=== PATIENT | female | born 1950 | race Caucasian/White ===

== ENCOUNTER → 2018-11-03 08:38 | Outpatient (CLI) | payer MEDICARE, MEDICAID, SELFPAY ==
--- NOTE | 2018-11-03 08:42 | XR_ITS ---
XR DEXA axial skeleton HISTORY: ITS.REASON: OSTEOPENIA ORDERING PHYSICIAN: Antonette Montalvo PATIENT AGE: 68 years COMPARISON: 08/09/2016 FINDINGS: The BMD measured at the Left femoral neck is 0.857 g/cm squared with a T score of -1.3. This is considered Osteopenic according to the World Health Organization criteria. Fracture risk is Moderate. Treatment is advised. L1 L4 density has a T score of -0.7 and has decreased by 1.4%. The hip density has decreased by 1% IMPRESSION: Osteopenia with moderate fracture risk. Treatment is advised. Suggest follow-up exam October 2020
== END ==
PROVIDERS: PCP Nurse Practitioner Family; Visit Provider Nurse Practitioner Family
DX: Z13.820 Encounter for screening for osteoporosis (principal); M85.89 Other specified disorders of bone density and structure, multiple sites
CPT/HCPCS: 77080

== ENCOUNTER → 2019-05-19 08:40 | Outpatient (CLI) | payer MEDICARE, MEDICAID, SELFPAY ==
--- NOTE | 2019-05-19 08:43 | MR_ITS ---
PROCEDURE: MR HEAD/BRAIN WO/W CON CLINICAL INDICATION: MEMORY LOSS, AMAUROSIS FUGAX Dizziness, vision loss, COMPARISON: [facility] MRI-BRAIN W/WO from 02/06/2015 TECHNIQUE: Routine multiplanar multi echo sequences are performed without and with gadolinium enhancement. FINDINGS: No midline shift, mass effect, intracranial hemorrhage, or hydrocephalus is evident. Cerebellopontine angles, cerebellum, and brainstem are unremarkable. No enhancing lesions are apparent. There is a small T2 hyperintensity in the right basal ganglia in the globus pallidus region. This does not demonstrate contrast enhancement and does not demonstrate restricted diffusion. This may represent a gliotic focus. There are small areas of decreased T1 and increased T2 signal in the right basal ganglia consistent with dilated perivascular spaces. There is a partial empty sella. The optic chiasm, corpus callosum, and craniocervical junction have an unremarkable appearance. The hippocampal gyri are unremarkable. Temporal horns are symmetric. There is a small amount fluid within the mastoid sinuses. No paranasal sinus air-fluid level evident. IMPRESSION: 1. No definite acute intracranial finding. 2. 5 mm T2 hyperintensity in the right basal ganglia which may only be due to small area of gliosis. There is no contrast enhancement. No restricted diffusion. Suggest 6 month follow-up to confirm stability. 3. Bilateral mastoid effusions Dictated by: Jorge Zepeda MD 05/20/2019 09:59 Electronically signed by Jorge Zepeda MD in [place] 05/20/2019 09:59
--- NOTE | 2019-05-19 08:44 | MR_ITS ---
PROCEDURE: MR ORBITS FACE NECK WO/W CON CLINICAL INDICATION: MEMORY LOSS, AMAUROSIS FUGAX COMPARISON: MR HEAD/BRAIN WO/W CON from 05/19/2019 TECHNIQUE: Routine multiplanar multi echo sequences are performed without and with gadolinium enhancement. FINDINGS: No orbital mass apparent. No extraocular muscular enlargement. No fluid collections evident. The optic chiasm has an unremarkable appearance. No obvious aneurysms. IMPRESSION: Negative MRI of the orbits Dictated by: Jorge Zepeda MD 05/20/2019 10:11 Electronically signed by Jorge Zepeda MD in [place] 05/20/2019 10:11
== END ==
PROVIDERS: PCP Nurse Practitioner Family; Visit Provider Ophthalmology
DX: R41.3 Other amnesia (principal); G45.3 Amaurosis fugax
CPT/HCPCS: 70543; 70553; A9576

== ENCOUNTER 2023-05-11 08:13 | Emergency (ER) | payer MEDICARE, OTHER, SELFPAY ==
[2023-05-11 08:14] VITALS: BP 221/119; PULSE 75; RESP 18; TEMP 36.6; O2SAT 96; BMI 42.4
--- NOTE | 2023-05-11 08:15 | HMH.EDGENADL ---
Discharge Plan Disposition Patient Disposition: Home, Self-Care Condition: Good Prescriptions Prescriptions: New gabapentin 100 mg capsule 100 mg PO Q8H Qty: 20 0RF lisinopril-hydrochlorothiazide 10-12.5 mg tablet 1 tab PO DAILY Qty: 30 0RF Discontinued lisinopril-hydrochlorothiazide 10-12.5 mg tablet 1 tab PO DAILY No Action psyllium husk [Metamucil] 0.52 gram capsule 0.52 g PO DAILY diclofenac sodium 75 mg tablet,delayed release (DR/EC) 75 mg PO BID furosemide 20 mg tablet 20 mg PO DAILY omeprazole 20 mg capsule,delayed release(DR/EC) 20 mg PO DAILY aspirin 81 mg tablet,delayed release (DR/EC) 81 mg PO DAILY acetaminophen 500 MG tablet 1,000 mg PO DAILY Referrals Follow up/Referrals: Antonette Montalvo APRN [Primary Care Provider] - See instructions Activity Restrictions/Add. Instructions Additional Instructions/Restrictions: As discussed, I have prescribed a new medication called gabapentin which can help for the type of pain you are experiencing. In addition, you can take Aleve 500 mg twice daily, Tylenol up to 3 g daily. I have written a prescription for your prior blood pressure medication which is lisinopril hydrochlorothiazide, until you are able to follow-up with your primary care doctor. Please reassess your response to treatment with your primary care doctor and see a specialist if your primary care doctor feels that is necessary. Please return with any new or worsening symptoms. Clinical Impressions Clinical Impression: Sciatica Qualifiers: Laterality: left Qualified Code(s): M54.32 - Sciatica, left side Instructions Patient Instructions: DI for Low Back Pain, DI for Back Pain With Sciatica Discharge ED Provider: Eriberto Montoya General Adult HPI General Chief complaint: Back Pain/Injury Stated complaint: nausea, back pain radiating to legs Time Seen by Provider: 05/11/23 08:15 History of Present Illness HPI narrative: Patient presents for evaluation of midline lumbar spinal pain radiating down left leg, subacute in onset starting approximately 48 hours ago, with no preceding trauma. Patient denies history of similar symptoms although does note history of osteoporosis and osteoarthritis of bilateral knees. Of note, arrives to the emergency department hypertensive, states that she has not been seen by her primary care doctor in approximately 3 years due to issues secondary to COVID pandemic. Has not taken home medication of antihypertensive, or other home medications in approximately 3 years. Denies any chest pain or abdominal pain or palpitations or shortness of breath or sensory or motor deficits. Pain is described as sharp and radiating down the back of her left leg. Related Data Home Medications Medication Instructions Recorded Confirmed aspirin 81 mg tablet,delayed 81 mg PO DAILY Heart disease 11/03/18 12/01/18 release diclofenac sodium 75 mg 75 mg PO BID Pain 11/03/18 12/01/18 tablet,delayed release furosemide 20 mg tablet 20 mg PO DAILY Fluid 11/03/18 12/01/18 omeprazole 20 mg capsule,delayed 20 mg PO DAILY GERD 11/03/18 12/01/18 release acetaminophen 500 mg tablet 1,000 mg PO DAILY Pain 11/26/18 12/01/18 psyllium husk 0.52 gram capsule 0.52 g PO DAILY 12/01/18 12/01/18 (Metamucil) Previous Rx's Medication Instructions Recorded gabapentin 100 mg capsule 100 mg PO Q8H #20 caps 05/11/23 lisinopril 10 1 tab PO DAILY #30 tabs 05/11/23 mg-hydrochlorothiazide 12.5 mg tablet Allergies Allergy/AdvReac Type Severity Reaction Status Date / Time No Known Allergies Allergy Verified 12/01/18 13:09 [facility] Disclaimer: The information contained in this section may have been updated after the patient was seen, as this information can be updated by other users. Social History Smoking Status: Never smoker alcohol intake: never substance use type: denies use current occupational status: retir
--- NOTE | 2023-05-11 08:31 | CT_ITS ---
PROCEDURE INFORMATION: Exam: CT Lumbar Spine Without Contrast Exam date and time: 05/11/2023 8:50 AM Age: 72 years old Clinical indication: Low back pain; Additional info: Acute midline back pain, HX osteoporosis TECHNIQUE: Imaging protocol: Computed tomography of the lumbar spine without contrast. Radiation optimization: All CT scans at this facility use at least one of these dose optimization techniques: automated exposure control; mA and/or kV adjustment per patient size (includes targeted exams where dose is matched to clinical indication); or iterative reconstruction. REPORTING DATA: Count of CT and Cardiac NM exams in prior 12 months: This patient has received 0 known CTs and 0 known cardiac nuclear medicine studies in the 12 months prior to the current study. COMPARISON: No relevant prior studies available. FINDINGS: Bones/joints: There is no evidence of acute fracture. There is slight grade 1 anterolisthesis of L4 on L5. Otherwise alignment is maintained. There is osteopenia present. L1-L2: There is mild diffuse disc bulging without significant spinal canal stenosis. The neural foramina appear patent. L2-L3: There is mild diffuse disc osteophyte bulging without significant spinal canal stenosis. The neural foramina appear patent. L3-L4: There is [id number] diffuse disc osteophyte bulging without significant spinal canal stenosis. The right neural foramen appears patent. There is mild left neural foraminal stenosis secondary to foraminal disc bulging and facet hypertrophy. L4-L5: There is mild spinal canal stenosis secondary to moderate diffuse disc bulging which effaces the anterior thecal sac. There is moderate bilateral neural foraminal stenosis secondary to foraminal disc osteophyte bulging and facet hypertrophy. L5-S1: There is advanced loss of disc height. There is diffuse disc osteophyte ridging without significant spinal canal stenosis. There is severe left greater than right neural foraminal stenosis secondary to foraminal disc osteophyte ridging and facet hypertrophy. Heart: There is a small pericardial effusion identified. Adrenal glands: There is a 1.9 cm left adrenal adenoma. No further follow-up is necessary for this finding. Soft tissues: Unremarkable. IMPRESSION: 1. No evidence of acute fracture. 2. Degenerative changes as described. Please see above for specific findings at each level. 3. Small pericardial effusion. COMMENTS: Consistent with the [employer]'s Incidental Findings Committee white paper (J Am Bucky Radiol 2017): For any incidental adrenal lesion greater than or equal to 1 cm but less than or equal to 4 cm classified in this report as benign, likely benign, or containing fat (including classification as an adenoma or myelolipoma), no follow-up imaging is recommended per consensus recommendations based on imaging criteria. Further lab evaluation could be pursued if warranted based on clinical findings.
[2023-05-11 08:52] LABS: Basophils # 0.1 K/mm3 (0-0.2); Basophils % 0.7 % (0.1-2.0); Eosinophils # 0.3 K/mm3 (0.0-0.4); Eosinophils % 4.1 % (0.1-12.0); Hematocrit 50.9 % (37.0-47.0); Hemoglobin 16.3 g/dL (12.2-16.2); Lymphocytes # 1.3 K/mm3 (0.7-4.5); Lymphocytes % 18.1 % (10-50); Mean Corpuscular Hemoglobin 27.5 pg (27.0-31.2); Mean Corpuscular Volume 85.8 fl (81-99); Mean Platelet Volume 7.5 fl (7.4-10.4); Monocytes # 0.5 K/mm3 (0.1-1.0); Monocytes % 6.6 % (1.7-9.3); Neutrophils # 4.9 K/mm3 (1.8-7.8); Neutrophils % 70.5 % (37.0-80.0); Platelet Count 259 K/mm3 (142-424); Red Blood Count 5.93 M/mm3 (4.20-5.40); Red Cell Distribution Width 13.2 % (11.5-17.5)
[2023-05-11 08:57] LABS: Alanine Aminotransferase 21 U/L (12-78); Albumin Level 4.2 g/dl (3.5-5.0); Alkaline Phosphatase 116 U/L (38-126); Anion Gap 12.4 mEq/L (5-15); Aspartate Amino Transferase 24 U/L (14-36); Bilirubin,Total 0.6 mg/dl (0.2-1.3); Blood Urea Nitrogen 11 mg/dl (7-17); Calcium 9.3 mg/dl (8.4-10.2); Carbon Dioxide 30 mmol/L (22.0-30.0); Chloride 103 mmol/L (98-107); Creatinine Clearance Estimated 41 mL/min (50-200); Estimated Glomerular Filt Rate 62 ml/min (>60); GFR (African American) 75 ML/MIN (>60); Globulin 4.1 g/dL (1.3-3.2); Glucose 105 mg/dl (74-100); Potassium 4.4 mmoL/L (3.5-5.1); Sodium 141 mmol/L (136-145); Total Protein,Serum 8.3 g/dl (6.3-8.2)
[2023-05-11 09:01] VITALS: BP 179/95; PULSE 64; O2SAT 98
[2023-05-11 09:31] VITALS: BP 165/82; PULSE 65; O2SAT 97
[2023-05-11 09:51] LABS: Microscopic, Urine URINE MICROSCOPIC (MICROSCOPIC)
[2023-05-11 09:55] LABS: Appearance,Urine CLEAR (Clear); Bilirubin,Urine Negative (Negative); Blood, Urine TRACE-I (Negative); Color,Urine YELLOW (Yellow); Glucose,Urine (UA) Negative (Negative); Ketones,Urine Negative (Negative); Leukocyte Esterase,Urine 1+ (Negative); Nitrate,Urine Negative (Negative); Protein,Urine TRACE (Negative); Urobilinogen,Urine 0.2 EU/dl (0.2)
[2023-05-11 10:27] LABS: Bacteria,Urine Trace /lpf; RBC,Urine Occasional #/hpf (0-3)
[2023-05-11 10:43] VITALS: BP 217/94; PULSE 79; RESP 18; TEMP 36.7; O2SAT 98
== END 2023-05-11 10:44 | disposition home or self-care (01) ==
PROVIDERS: Emergency Provider Emergency Medicine; PCP Nurse Practitioner Family
DX: M54.42 Lumbago with sciatica, left side (principal); M81.8 Other osteoporosis without current pathological fracture; M17.0 Bilateral primary osteoarthritis of knee
CPT/HCPCS: 72131; 80053; 81001; 85025; 87086; 96374; 99285

== ENCOUNTER 2023-05-17 11:03 | Emergency (ER) | payer MEDICARE, OTHER, SELFPAY ==
[2023-05-17 11:03] VITALS: BP 183/84; PULSE 71; RESP 18; TEMP 36.4; O2SAT 97; BMI 42.6
[2023-05-17 11:06] VITALS: BP 183/84; PULSE 75; RESP 20; O2SAT 98
--- NOTE | 2023-05-17 11:11 | PC.NURSE ---
FAMILY AT BEDSIDE
--- NOTE | 2023-05-17 11:23 | XR_ITS ---
PROCEDURE INFORMATION: Exam: XR Left Knee Exam date and time: 05/17/2023 11:57 AM Age: 72 years old Clinical indication: Injury or trauma; Fall; Blunt trauma; Knee; Left; Additional info: Fall with injury TECHNIQUE: Imaging protocol: Radiologic exam of the left knee. Views: 3 views. COMPARISON: No relevant prior studies available. FINDINGS: Bones/joints: Tricompartmental degenerative osteoarthritis. Findings most severe medial knee compartment with near aizw-zh-[id number] configuration. Moderate patellofemoral degenerative changes also suggested. Soft tissues: Soft tissue swelling superficial to the medial knee compartment. IMPRESSION: 1. Tricompartmental degenerative osteoarthritis. Findings most severe medial knee compartment with near axkh-xc-[id number] configuration. 2. No evidence of acute osseous injury. 3. Soft tissue swelling superficial to the medial knee compartment. Clinically correlate regarding medial collateral ligamentous injury.
--- NOTE | 2023-05-17 11:23 | XR_ITS ---
PROCEDURE INFORMATION: Exam: XR Lumbosacral Spine Exam date and time: 05/17/2023 11:57 AM Age: 72 years old Clinical indication: Injury or trauma; Fall; Blunt trauma (contusions or hematomas); Additional info: Recent fall with injury TECHNIQUE: Imaging protocol: Radiologic exam of the lumbosacral spine. Views: 2 or 3 views. COMPARISON: CT LUMBAR SPINE WO CON 05/11/2023 8:50 AM FINDINGS: Bones/joints: Lumbar spondylosis with multilevel disc degeneration. Severe changes of disc degeneration at L5-S1. Limbus vertebra again demonstrated at L3. Soft tissues: Unremarkable. IMPRESSION: No evidence of acute osseous injury.
--- NOTE | 2023-05-17 11:23 | CT_ITS ---
PROCEDURE INFORMATION: Exam: CT Head Without Contrast Exam date and time: 05/17/2023 11:37 AM Age: 72 years old Clinical indication: Injury or trauma; Fall; Blunt trauma (contusions or hematomas); Additional info: Closed head injury TECHNIQUE: Imaging protocol: Computed tomography of the head without contrast. Radiation optimization: All CT scans at this facility use at least one of these dose optimization techniques: automated exposure control; mA and/or kV adjustment per patient size (includes targeted exams where dose is matched to clinical indication); or iterative reconstruction. REPORTING DATA: Count of CT and Cardiac NM exams in prior 12 months: This patient has received [address] and 0 known cardiac nuclear medicine studies in the 12 months prior to the current study. COMPARISON: MR HEAD/BRAIN WO/W CON 05/19/2019 9:08 AM FINDINGS: Brain: Normal. No hemorrhage. Unremarkable white matter. No mass effect. Cerebral ventricles: No ventriculomegaly. Paranasal sinuses: Visualized sinuses are unremarkable. No fluid levels. Mastoid air cells: Visualized mastoid air cells are well aerated. Bones/joints: Unremarkable. No acute fracture. Soft tissues: Unremarkable. IMPRESSION: No evidence of acute intracranial abnormality.
--- NOTE | 2023-05-17 11:23 | XR_ITS ---
PROCEDURE INFORMATION: Exam: XR Right Knee Exam date and time: 05/17/2023 11:57 AM Age: 72 years old Clinical indication: Injury or trauma; Fall; Blunt trauma; Knee; Right; Additional info: Fall with injury TECHNIQUE: Imaging protocol: Radiologic exam of the right knee. Views: 3 views. COMPARISON: No relevant prior studies available. FINDINGS: Bones/joints: Moderately severe degenerative osteoarthritis medial knee compartment. Moderate narrowing lateral knee compartment. Moderate patellofemoral degenerative changes. Soft tissues: Normal. IMPRESSION: 1. Moderately severe degenerative osteoarthritis medial knee compartment. 2. No evidence of acute osseous injury.
--- NOTE | 2023-05-17 11:24 | HMH.EDGENADL ---
Discharge Plan Disposition Patient Disposition: Home, Self-Care Condition: Fair Chief Complaint: PAIN Prescriptions Prescriptions: No Action psyllium husk [Metamucil] 0.52 gram capsule 0.52 g PO DAILY diclofenac sodium 75 mg tablet,delayed release (DR/EC) 75 mg PO BID furosemide 20 mg tablet 20 mg PO DAILY omeprazole 20 mg capsule,delayed release(DR/EC) 20 mg PO DAILY aspirin 81 mg tablet,delayed release (DR/EC) 81 mg PO DAILY acetaminophen 500 MG tablet 1,000 mg PO DAILY gabapentin 100 mg capsule 100 mg PO Q8H Qty: 20 0RF lisinopril-hydrochlorothiazide 10-12.5 mg tablet 1 tab PO DAILY Qty: 30 0RF Referrals Follow up/Referrals: Provider,Referral, MD [Primary Care Provider] - See instructions Activity Restrictions/Add. Instructions Additional Instructions/Restrictions: Please follow-up with your primary care provider in about 3 to 5 days if you do not feel any improvement. Return immediately to the emergency department if you feel worse in any way. You can take [id number] Tylenol as directed on the package for your pain. Clinical Impressions Clinical Impression: Contusion of scalp Qualifiers: Encounter type: initial encounter Qualified Code(s): S00.03XA - Contusion of scalp, initial encounter Knee strain Qualifiers: Encounter type: initial encounter Laterality: bilateral Qualified Code(s): S86.911A - Strain of unspecified muscle(s) and tendon(s) at lower leg level, right leg, initial encounter; S86.912A - Strain of unspecified muscle(s) and tendon(s) at lower leg level, left leg, initial encounter Acute lumbar myofascial strain Qualifiers: Encounter type: initial encounter Qualified Code(s): S39.012A - Strain of muscle, fascia and tendon of lower back, initial encounter Instructions Patient Instructions: Muscle Strain, DI for Back Strain or Sprain, Contusion Discharge ED Provider: Мария [facility] General Chief complaint: PAIN Stated complaint: Knee and back pain Time Seen by Provider: 05/17/23 11:08 Mode of Arrival: EMS Source of Information: Patient and EMS Limitations: No Limitations Description of Symptoms (Recalled from ER Triage Doc. by RN): PT WITH C/O LEFT LEG PAIN AND WEAKNESS FROM A FALL ON FRIDAY. STATES SHE WAS GETTING IN HER CAR, LANDED ON LEFT LEG AND BUTTOCKS. STATES SHE HIT HER HEAD ON PAVED PARKING LOT. DENIES LOC History of Present Illness HPI narrative: The patient fell on at [employer] while trying to get into her car. She struck the back of her head. She also complains of bilateral knee pain. She also complains of new low back pain. She was recently evaluated for sciatica and had a recent lumbar spine x-ray done. However, the injury occurred after this x-ray. She denies any loss of consciousness, vomiting, new dizziness. Related Data Home Medications Medication Instructions Recorded Confirmed aspirin 81 mg tablet,delayed 81 mg PO DAILY Heart disease 11/03/18 12/01/18 release diclofenac sodium 75 mg 75 mg PO BID Pain 11/03/18 12/01/18 tablet,delayed release furosemide 20 mg tablet 20 mg PO DAILY Fluid 11/03/18 12/01/18 omeprazole 20 mg capsule,delayed 20 mg PO DAILY GERD 11/03/18 12/01/18 release acetaminophen 500 mg tablet 1,000 mg PO DAILY Pain 11/26/18 12/01/18 psyllium husk 0.52 gram capsule 0.52 g PO DAILY 12/01/18 12/01/18 (Metamucil) Previous Rx's Medication Instructions Recorded gabapentin 100 mg capsule 100 mg PO Q8H #20 caps 05/11/23 lisinopril 10 1 tab PO DAILY #30 tabs 05/11/23 mg-hydrochlorothiazide 12.5 mg tablet Allergies Allergy/AdvReac Type Severity Reaction Status Date / Time No Known Allergies Allergy Verified 12/01/18 13:09 [facility] Disclaimer: The information contained in this section may have been updated after the patient was seen, as this information can be updated by other users. Social History Smoking Status: Never smoker a
--- NOTE | 2023-05-17 11:32 | PC.NURSE ---
PT TO CT
--- NOTE | 2023-05-17 11:51 | PC.NURSE ---
Pt returned from RAD
--- NOTE | 2023-05-17 12:13 | PC.NURSE ---
DR SPENCE AT BEDSIDE TO UPDATE PT AND FAMILY
[2023-05-17 12:35] VITALS: BP 146/80; PULSE 72; RESP 18; TEMP 36.6; O2SAT 97
== END 2023-05-17 12:40 | disposition home or self-care (01) ==
PROVIDERS: Emergency Provider Emergency Medicine; PCP Nurse Practitioner Family
DX: S00.03XA Contusion of scalp, initial encounter (principal); S86.919A Strain of unspecified muscle(s) and tendon(s) at lower leg level, unspecified leg, initial encounter; S39.012A Strain of muscle, fascia and tendon of lower back, initial encounter; W19.XXXA Unspecified fall, initial encounter
CPT/HCPCS: 70450; 72100; 73562; 99284

== ENCOUNTER → 2023-05-29 15:24 | Outpatient (CLI) | payer MEDICARE, OTHER, SELFPAY ==
--- NOTE | 2023-05-29 15:32 | XR_ITS ---
FINAL REPORT CLINICAL HISTORY: LT LEG PAIN COMPARISON: None FINDINGS: Two views of the left femur were obtained. There is no acute fracture or dislocation. There is severe degenerative change of the knee. There is no acute soft tissue abnormality. IMPRESSION: No acute abnormality identified. Reviewed, Interpreted and Dictated by Jhon Sheffield III, MD Transcribed by Ludy Huerta Authenticated and [facility]
--- NOTE | 2023-05-29 15:32 | XR_ITS ---
FINAL REPORT CLINICAL HISTORY: RT HIP PAIN COMPARISON: None FINDINGS: RIGHT HIP Two views of the right hip with an AP view of the pelvis demonstrate no acute fracture or dislocation. There is jsll-xl-[id number] degenerative change. The visualized bony structures are well aligned. No soft tissue abnormality is seen. IMPRESSION: Jjzh-[id number] degenerative change without acute bony abnormality. Reviewed, Interpreted and Dictated by Jhon Sheffield III, MD Transcribed by Ludy Huerta Authenticated and [facility]
--- NOTE | 2023-05-29 15:32 | XR_ITS ---
FINAL REPORT CLINICAL HISTORY: LT ANTERIOR KNEE PAIN COMPARISON: 05/17/2023 FINDINGS: Three views of the left knee reveal no evidence of fracture or dislocation. The bony alignment is normal. There is severe degenerative change. Severe medial compartment narrowing is noted. There is no evidence of joint effusion. No localized soft tissue abnormality is seen. IMPRESSION: Severe degenerative change without acute abnormality identified. Reviewed, Interpreted and Dictated by Jhon Sheffield III, MD Transcribed by Ludy Huerta Authenticated and [facility]
--- NOTE | 2023-05-29 15:32 | XR_ITS ---
FINAL REPORT CLINICAL HISTORY: Lumbosacral DDD WITH SCIATICA COMPARISON: 05/17/2023 FINDINGS: 5 views of the lumbar spine were obtained. There is no evidence of fracture or dislocation. The vertebral alignment is normal. There are moderate and severe degenerative changes. Vacuum phenomenon is noted at L3-4. There are vascular calcifications. IMPRESSION: Moderate and severe degenerative changes without acute bony abnormality. Reviewed, Interpreted and Dictated by Jhon Sheffield III, MD Transcribed by Ludy Huerta Authenticated and [facility]
--- NOTE | 2023-05-29 15:32 | XR_ITS ---
FINAL REPORT CLINICAL HISTORY: LT HIP PAIN COMPARISON: None FINDINGS: LEFT HIP: Two views of the left hip with an AP view of the pelvis demonstrate no acute fracture or dislocation. There is mild degenerative change. The visualized bony structures are well aligned. No soft tissue abnormality is seen. IMPRESSION: Mild degenerative change without acute bony abnormality. Reviewed, Interpreted and Dictated by Jhon Sheffield III, MD Transcribed by Ludy Huerta Authenticated and [facility]
== END ==
PROVIDERS: PCP Nurse Practitioner Family; Visit Provider Nurse Practitioner Family
DX: M25.551 Pain in right hip (principal); M25.552 Pain in left hip; M79.605 Pain in left leg; M25.562 Pain in left knee; M51.37 Other intervertebral disc degeneration, lumbosacral region; M54.42 Lumbago with sciatica, left side
CPT/HCPCS: 72110; 73502; 73552; 73562

== ENCOUNTER → 2023-06-16 07:31 | Outpatient (CLI) | payer MEDICARE, OTHER, SELFPAY ==
--- NOTE | 2023-06-16 08:05 | MR_ITS ---
FINAL REPORT CLINICAL HISTORY: LEFT ANTERIOR PAIN. KNEE INSTABILITY. COMPARISON: None FINDINGS: Multiplanar MR imaging of the right knee was performed without contrast. There is severe medial meniscal degeneration with a large degenerative tear involving the anterior horn, the body, and the posterior horn of the medial meniscus. There is blunting of the posterior horn of the lateral meniscus, worrisome for a focal tear. The anterior cruciate ligament is not seen, consistent with a chronic tear. The posterior cruciate ligament is intact. There is a partial tear of the proximal medial collateral ligament. The lateral collateral ligament is intact. There are foci of patellar tendinitis present. There is no evidence of fracture. There is severe degenerative change throughout the knee. There is chondromalacia, most severe involving the medial compartment of the knee, where there are multiple subchondral cysts. A moderate joint effusion is seen. The musculature is intact. No soft tissue mass or cyst is identified. IMPRESSION: Tears of the anterior horn, body, and posterior horn of the medial meniscus, with severe medial meniscal degeneration. There is blunting of the posterior horn of the lateral meniscus worrisome for a focal tear. The anterior cruciate ligament is not seen consistent with a chronic tear. There is a partial tear of the proximal medial collateral ligament. Severe degenerative changes present, with foci of patellar tendinitis, and severe chondromalacia worst in the medial compartment with multiple subchondral cysts. A moderate joint effusion is present. Reviewed, Interpreted and Dictated by Jhon Sheffield III, MD Transcribed by Padmini Cardona Authenticated and [facility]
== END ==
PROVIDERS: PCP Nurse Practitioner Family; Visit Provider Nurse Practitioner Family
DX: M25.562 Pain in left knee (principal)
CPT/HCPCS: 73721

== ENCOUNTER → 2023-06-26 09:49 | Outpatient (POV) | payer MEDICARE, OTHER, SELFPAY ==
[2023-06-26 09:56] VITALS: BP 138/69; PULSE 63; RESP 18; O2SAT 94; BMI 42.4
--- NOTE | 2023-06-26 10:23 | EXP.PAIN.OV ---
HPI Data of Consult Patient: new to practice Consult date: 06/26/23 Requesting Physician: Yi Islas APRN Primary Care Provider: Natalie Montano APRN Consult Narrative Reason for consult: Knee/hip pain, low back pain History of present illness: Ms. Moore is a 72 year old female who presents today as a new patient. She is a referral from Jenny Marrero's office. Today she rates her pain a 4 out of 10. Patient states she has pain in her low back and hips as well as her bilateral knees. Patient states this has been going on for at least 15 to 20 years if not longer. She states she was diagnosed with arthritis early on. Patient does describe her pain as an aching, throbbing, sharp sensation with numbness and tingling into her extremities. Patient does state the pain is worse with increased ambulation or range of motion. She does state the pain interferes with her ability perform activities of daily living such as cooking and cleaning. Patient has tried chiropractor in the past with some improvement. Patient does state that she has used Tylenol along with heat and ice and topicals with minimal improvement. She states she was given tramadol and it made no additional change to her pain symptoms. She is currently on hydrocodone and this does help. She does state that she typically uses her rollator walker at home for help with ambulation and she does present today in wheelchair. She states that her knees frequently will give out at random times causing her to fall. She states this did just happen a few weeks ago causing worsening pain in her knees. She is seeing Heri Islas for her knee issues and states that she had a intra-articular injection of her left knee that did provide some improvement. Patient is interested in any help we may be able to provide. Her Brent has been reviewed and is appropriate. CC: Yi Islas APRN [facility] Disclaimer: The information contained in this section may have been updated after the patient was seen, as this information can be updated by other users. Medical History (Updated 06/26/23 @ 10:27 by Yi Islas APRN) Arthritis GERD (gastroesophageal reflux disease) HLD (hyperlipidemia) HTN (hypertension) Obesity Osteopenia TIA (transient ischemic attack) Surgical History (Updated 06/26/23 @ 09:59 by Tonya E Works, RN) H/O section H/O colonoscopy Family History (Updated 06/26/23 @ 09:58 by Tonya Khan RN) Other Cancer Diabetes Heart disease Pulmonary emboli Social History Smoking Status: Never smoker alcohol intake: never substance use type: denies use current occupational status: retired Travel in the last 8 weeks: None caffeine: Yes Review of Systems Review of Systems Review of systems:: pertinent systems reviewed and negative unless documented below Review of systems (narrative): Review of Systems: General: No recent weight changes, no fever, no sleep disturbances Respiratory: No cough, no shortness of air, no recurring pulmonary infections Cardiovascular/peripheral vascular: No chest pain, no palpitations, no edema, no shortness of breath Gastrointestinal: No new onset incontinence, normal bowel movements reported Genitourinary: No new onset incontinence Musculoskeletal: Knee pain, low back pain Psychiatric: [Normal mood/affect] Neurological: [Denies weakness in extremities], [denies balance issues] Meds Home Medications and Allergies Home Medications Medication Instructions Recorded Confirmed Type aspirin 81 mg tablet,delayed 81 mg PO DAILY Heart disease 11/03/18 06/24/23 History release diclofenac sodium 75 mg 75 mg PO BID Pain 11/03/18 06/24/23 History tablet,delayed release furosemide 20 mg tablet 20 mg PO DAILY Fluid 11/03/18 06/24/23 History omeprazole 20 mg capsule,delayed 20 mg PO DAILY GERD 11/03/18 06/24/23 History release acetaminophen 500 mg tablet 1,
== END ==
PROVIDERS: PCP Nurse Practitioner Family; Visit Provider Nurse Practitioner Family
DX: M25.551 Pain in right hip; M25.552 Pain in left hip; M25.561 Pain in right knee; M25.562 Pain in left knee; G89.29 Other chronic pain; M51.16 Intervertebral disc disorders with radiculopathy, lumbar region
CPT/HCPCS: 99202; G0463

== ENCOUNTER → 2023-07-18 08:58 | Outpatient (CLI) | payer MEDICARE, OTHER, SELFPAY ==
--- NOTE | 2023-07-18 09:03 | XR_ITS ---
FINAL REPORT TECHNIQUE: Bone mineral density was calculated of the lumbar spine and hip. CLINICAL HISTORY: POST MENOPAUSAL COMPARISON: 11/03/2018 FINDINGS: Using L1-4, the bone mineral density of the spine is 0.935 g/cm2, corresponding to T-score of -1.0. This is worse than noted on the prior exam of 11/03/2018, which had a T-score of -0.7. Using the right hip, the bone mineral density of the femoral neck is 0.674 g/cm2, corresponding to a T-score of -1.6. This is worse than noted on the prior exam of 11/03/2018, which had a T-score of -1.2. NOTE: T-score: Standard deviation compared with peak bone mass of young adult mean. *Following the recommendations of the International Society of Bone densitometry, classification of hip BMD is based on the lower of two T-scores; total hip or femoral neck. IMPRESSION: Diminished bone mineral density of the lumbar spine and right hip consistent with low bone density. Reviewed, Interpreted and Dictated by Jhon Sheffield III, MD Transcribed by Padmini Cardona Authenticated and [facility]
== END ==
PROVIDERS: PCP Nurse Practitioner Family; Visit Provider Nurse Practitioner Family
DX: Z13.820 Encounter for screening for osteoporosis; Z78.0 Asymptomatic menopausal state
CPT/HCPCS: 77080

== ENCOUNTER 2023-07-22 07:38 | Day surgery (SDC) | payer MEDICARE, OTHER, SELFPAY ==
[2023-07-22 08:17] VITALS: BP 143/82; PULSE 67; RESP 16; O2SAT 98; BMI 41.1
[2023-07-22 08:47] VITALS: BP 189/87; PULSE 70; RESP 18; O2SAT 96
[2023-07-22 08:48] VITALS: BP 189/87; PULSE 68; RESP 18; O2SAT 96
[2023-07-22 08:50] VITALS: BP 172/81; PULSE 67; RESP 16; O2SAT 98
--- NOTE | 2023-07-22 09:06 | EXP.PAIN.PRO ---
Procedure Date: 07/22/23 Time: 08:30 Anesthesiologist:: Gunnar Sung CRNA Complications:: None Pre-procedure Diagnosis:: Degenerative disc lumbar spine multilevels. Lumbar radiculopathy. Post-procedure Diagnosis:: Same. Indications for Procedure:: Patient is a pleasant 72-year-old female comes to clinic today for lumbar epidural steroid injection at the L4-5 level. Patient reports low back pain as well as bilateral hip and leg radicular symptoms. She rates her pain 6/10. Procedure Details:: Procedure: Lumbar epidural steroid injection under fluoroscopy Informed consent was obtained and the risks and benefits of the procedure were explained to the patient. The patient was taken to the procedure room and noninvasive monitors placed, including noninvasive blood pressure cuff and pulse oximeter. The back was viewed using C-arm Fluoroscopy and prepped using Chloraprep as a cleansing solution and the L4-L5 interspace was palpated. Skin and subcutaneous tissues were anesthetized using lidocaine 1.5% and a 25-gauge needle. After this, an 18-gauge Touhy epidural needle was placed into the L4-L5 interspace and advanced using fluoroscopic guidance and loss of resistance to air until the epidural space was encountered. After confirmation of needle placement in the epidural space, with dye, a solution containing normal saline, 3 mL and Depo-Medrol 80 mg were incrementally injected into the lumbar epidural space. The patient tolerated the procedure well with no complications. The patient was observed in the Pain Clinic and then discharged home neurologically intact. Plan and Disposition:: Patient was discharged without incident.
== END 2023-07-22 08:50 | disposition home or self-care (01) ==
PROVIDERS: PCP Nurse Practitioner Family; Visit Provider Nurse Anesthetist, Certified Registered
DX: M51.16 Intervertebral disc disorders with radiculopathy, lumbar region (principal)
CPT/HCPCS: 62323; 72148; 76376; J1040

== ENCOUNTER → 2023-07-22 15:41 | Outpatient (CLI) | payer MEDICARE, OTHER, SELFPAY ==
--- NOTE | 2023-07-22 15:43 | MR_ITS ---
FINAL REPORT TECHNIQUE: Multiplanar MR without gadolinium enhancement CLINICAL HISTORY: LOW BACK PAIN. LOWER EXTREMITY WEAKNESS FINDINGS: Sagittal images show normal vertebral height. Alignment is normal. A mass is noted of the left L1 vertebral body measuring 2.7 cm. This is likely hemangioma. There is also a mass of the L4 vertebral body measuring 2.0 cm also likely representing hemangioma. However both lesions to mild increased signal on STIR sequences which may features somewhat atypical. Otherwise marrow signal pattern is unremarkable. T12-L1: Minimal annular disc bulge L1-2: Mild annular disc bulge. Mild facet arthropathy. L2-3: Mild annular disc bulge without canal stenosis. Mild bilateral neural foraminal narrowing. L3-4: Moderate annular disc bulge and facet arthropathy. Borderline central canal stenosis. Mild bilateral neural foraminal narrowing. L4-5: Moderate annular disc bulge and facet arthropathy. Mild central canal stenosis. Moderate bilateral neural foraminal narrowing. L5-S1: Mild annular disc bulge and facet arthropathy. Mild central canal stenosis. Moderate bilateral neural foraminal narrowing. IMPRESSION: 1. No fracture 2. Moderate diffuse degenerative changes with canal stenosis and neural foraminal narrowing as above most pronounced lower lumbar spine 3. Bone lesions of L1 and L4. Favor hemangiomas although somewhat atypical in appearance. Consider MR follow-up in 6 months to confirm stability. Authenticated and ERN
== END ==
PROVIDERS: PCP Nurse Practitioner Family; Visit Provider Nurse Practitioner Family
DX: M54.50 Low back pain, unspecified (principal)
CPT/HCPCS: 72148; 76376

== ENCOUNTER → 2023-08-06 08:34 | Outpatient (POV) | payer MEDICARE, OTHER, SELFPAY ==
--- NOTE | 2023-08-06 08:46 | EXP.PAIN.SOA ---
[facility] Pain Management SOAP Note Subjective:: Patient is a pleasant 72-year-old female who presents today for follow-up of lumbar epidural steroid injection L4-L5 on 07/22/2023. We are currently treating the patient for degenerative disc disease of lumbar spine with lumbar radiculopathy symptoms, low back pain, bilateral knee pain, bilateral hip pain. Today she rates her pain a 5 out of 10. Patient denies any new trauma or injury. She states following this injection she had at least 50% relief and it is still providing additional improvement. Patient states that she has been able to increase her activity and that she has walked even without her walker some. Patient states that she is no longer using the bedside commode and is actually able to get up and go over to her bathroom. Patient states that she had a MRI that she was able to actually walk into the room to the table with assistance from the tech. Patient does states she still feels like her knees are weak and they may occasionally want to give out. She states that she sees Dr. Heri Islas for her knee pain. She states that she did have a injection back in May on the left knee and that she is scheduled to go back in August to see him for follow-up. Her Brent has been reviewed and is appropriate. Review of Systems: General: No recent weight changes, no fever, no sleep disturbances Respiratory: No cough, no shortness of air, no recurring pulmonary infections Cardiovascular/peripheral vascular: No chest pain, no palpitations, no edema, no shortness of breath Gastrointestinal: No new onset incontinence, normal bowel movements reported Genitourinary: No new onset incontinence Musculoskeletal: Low back pain, knee pain Psychiatric: [Normal mood/affect] Neurological: [Denies weakness in extremities], [denies balance issues] Objective:: Physical Exam: General: Alert and oriented x3, no acute distress, pleasant and cooperative Lungs: Respirations even and unlabored, symmetrical chest expansion Eyes: PERRL Musculoskeletal: Flexion and extension of lumbar [spine] somewhat guarded secondary to pain, [antalgic gait noted] Neurological: Speech clear, no gross sensory deficit Assessment:: Degenerative disc disease of lumbar spine with lumbar radiculopathy symptoms, low back pain, bilateral knee pain, bilateral hip pain Plan:: Patient has had significant improvement following her lumbar epidural and does not require any additional injection therapy at this time. Patient will return to clinic in 1 month for reevaluation of symptoms and plan of care. Patient has been instructed to contact the clinic with any concerns before the next appointment. Dr. Salter has reviewed this note and agrees with this plan of care. This note was dictated using voice recognition software and make contain errors or omissions. [facility] Disclaimer: The information contained in this section may have been updated after the patient was seen, as this information can be updated by other users. Medical History Arthritis GERD (gastroesophageal reflux disease) HLD (hyperlipidemia) HTN (hypertension) Obesity Osteopenia TIA (transient ischemic attack) Surgical History H/O section H/O colonoscopy Family History Other Cancer Diabetes Heart disease Pulmonary emboli Social History Smoking Status: Never smoker alcohol intake: never substance use type: denies use current occupational status: retired Travel in the last 8 weeks: None caffeine: Yes
[2023-08-06 10:09] VITALS: BP 127/73; PULSE 65; RESP 20; O2SAT 97; BMI 41.1
== END ==
PROVIDERS: Visit Provider Nurse Practitioner Family
DX: M51.16 Intervertebral disc disorders with radiculopathy, lumbar region (principal); M25.561 Pain in right knee; M25.562 Pain in left knee; M25.551 Pain in right hip; M25.552 Pain in left hip
CPT/HCPCS: 99212; G0463

== ENCOUNTER 2023-09-04 08:39 | Outpatient (CLI) | payer MEDICARE, OTHER, SELFPAY ==
[2023-09-04 09:17] LABS: Chloride 100 mmol/L (98-107)
[2023-09-04 09:18] LABS: Potassium 4.2 mmoL/L (3.5-5.1); Sodium 138 mmol/L (136-145)
[2023-09-04 09:20] LABS: Alanine Aminotransferase 22 U/L (12-78); Aspartate Amino Transferase 25 U/L (14-36); Blood Urea Nitrogen 12 mg/dl (7-17); Carbon Dioxide 31 mmol/L (22.0-30.0); Estimated Glomerular Filt Rate 71 ml/min (>60); GFR (African American) 86 ML/MIN (>60)
[2023-09-04 09:21] LABS: Albumin Level 3.8 g/dl (3.5-5.0); Albumin/Globulin Ratio 1.3 (1.1-1.8); Alkaline Phosphatase 78 U/L (38-126); Bilirubin,Total 0.5 mg/dl (0.2-1.3); Calcium 9.5 mg/dl (8.4-10.2); Chol/HDL Ratio 5.5 (1-3.5); Cholesterol 198 mg/dl (140-200); Globulin 2.9 g/dL (1.3-3.2); Glucose 103 mg/dl (74-100); HDL Cholesterol 36 mg/dl (40-60); Total Protein,Serum 6.7 g/dl (6.3-8.2); Triglycerides 146 mg/dl (30-150); VLDL Cholesterol 29 mg/dL (0-40)
[2023-09-04 09:24] LABS: Anion Gap 11.2 mEq/L (5-15)
[2023-09-04 09:32] LABS: Direct LDL Cholesterol 120.56 mg/dL (100-129)
== END 2023-09-04 23:59 ==
LOC: LAB 08:40
PROVIDERS: PCP Nurse Practitioner Family; Visit Provider Nurse Practitioner Family
DX: E78.5 Hyperlipidemia, unspecified (principal); I10 Essential (primary) hypertension
CPT/HCPCS: 36415; 80053; 80061

== ENCOUNTER → 2023-09-18 08:24 | Outpatient (POV) | payer MEDICARE, OTHER, SELFPAY ==
--- NOTE | 2023-09-18 09:38 | EXP.PAIN.SOA ---
[facility] Pain Management SOAP Note Subjective:: Patient is a pleasant 73-year-old female who presents today for follow-up. We are currently treating the patient for degenerative disc disease of lumbar spine with lumbar radiculopathy symptoms, low back pain, bilateral knee pain, bilateral hip pain. Today she rates her pain a 9 out of 10. Patient denies any new injury or falls from our last visit. She does feel like the injection that she had back in June has now worn off. Patient states her pain is an aching, throbbing sensation with numbness and tingling into her legs. Patient states that it does affect her ability to perform activities of daily living such as cooking or cleaning and that it is even hard to sleep due to the pain. Patient did previously have a lumbar epidural steroid injection of L4-L5 that did provide 50% relief lasting upwards of 2 months. Patient is interested in repeating this. Patient does state that she is scheduled for follow-up with Dr. Heri Islas next week for her knees. Her Brent has been reviewed and is appropriate. Review of Systems: General: No recent weight changes, no fever, no sleep disturbances Respiratory: No cough, no shortness of air, no recurring pulmonary infections Cardiovascular/peripheral vascular: No chest pain, no palpitations, no edema, no shortness of breath Gastrointestinal: No new onset incontinence, normal bowel movements reported Genitourinary: No new onset incontinence Musculoskeletal: Low back pain, bilateral leg pain Psychiatric: [Normal mood/affect] Neurological: [Denies weakness in extremities], [denies balance issues] Objective:: Physical Exam: General: Alert and oriented x3, no acute distress, pleasant and cooperative Lungs: Respirations even and unlabored, symmetrical chest expansion Eyes: PERRL Musculoskeletal: Flexion and extension of lumbar [spine] somewhat guarded secondary to pain, [antalgic gait noted] positive leg raise Neurological: Speech clear, no gross sensory deficit Assessment:: Degenerative disc disease of lumbar spine with lumbar radiculopathy symptoms, low back pain, bilateral knee pain, bilateral hip pain Plan:: Patient is experiencing worsening pain in her low back and legs with limited range of motion and numbness and tingling. I have discussed with the patient that she may benefit from a repeat lumbar epidural steroid injection. Patient did have a positive bilateral leg raise during today's exam. Risk and benefits of this injection were explained to the patient and she would like to proceed forward with this plan of care. Patient is not on any blood thinners. I will also order the patient a compounded cream. The patient will be scheduled for an LESI L4-L5 under fluoroscopy. Patient has been instructed to contact the clinic with any concerns before the next appointment. Dr. Salter has reviewed this note and agrees with this plan of care. This note was dictated using voice recognition software and make contain errors or omissions. [facility] Disclaimer: The information contained in this section may have been updated after the patient was seen, as this information can be updated by other users. Medical History Arthritis GERD (gastroesophageal reflux disease) HLD (hyperlipidemia) HTN (hypertension) Obesity Osteopenia TIA (transient ischemic attack) Surgical History H/O section H/O colonoscopy Family History Other Cancer Diabetes Heart disease Pulmonary emboli Social History Smoking Status: Never smoker alcohol intake: never substance use type: denies use current occupational status: other Travel in the last 8 weeks: None caffeine: Yes
[2023-09-18 12:03] VITALS: BP 128/72; PULSE 66; RESP 18; O2SAT 97; BMI 41.0
== END ==
LOC: SC.PAIN 08:25
PROVIDERS: Visit Provider Nurse Practitioner Family
DX: M51.16 Intervertebral disc disorders with radiculopathy, lumbar region (principal); M54.50 Low back pain, unspecified; M25.561 Pain in right knee; M25.562 Pain in left knee; M25.551 Pain in right hip; M25.552 Pain in left hip
CPT/HCPCS: 99212; G0463

== ENCOUNTER 2023-09-30 07:50 | Day surgery (SDC) | payer MEDICARE, OTHER, SELFPAY ==
[2023-09-30 08:19] VITALS: BP 146/86; PULSE 58; RESP 18; TEMP 36.4; O2SAT 96; BMI 41.0
[2023-09-30 08:34] VITALS: BP 165/81; PULSE 62; RESP 18; O2SAT 99
[2023-09-30] MEDS: methylPREDNISolone ACETATE 80MG/ML VIAL 80 MG (08:34)
[2023-09-30 08:35] VITALS: BP 165/81; PULSE 54; RESP 18; O2SAT 99
[2023-09-30 08:36] VITALS: BP 176/65; PULSE 56; RESP 16; O2SAT 96
--- NOTE | 2023-09-30 08:54 | EXP.PAIN.PRO ---
Procedure Date: 09/30/23 Time: 08:20 Anesthesiologist:: Gunnar Sung CRNA Complications:: None Pre-procedure Diagnosis:: Degenerative disc lumbar spine multilevels. Lumbar radiculopathy. Post-procedure Diagnosis:: Same. Indications for Procedure:: Patient is a very pleasant 73-year-old female comes our clinic today for lumbar epidural steroid injections L4-5 level. Patient had moderate to significant improvement terms of her overall low back pain as well as bilateral hip and leg radicular symptoms with her previous injection. She rates her pain today 6/10. Procedure Details:: Procedure: Lumbar epidural steroid injection under fluoroscopy Informed consent was obtained and the risks and benefits of the procedure were explained to the patient. The patient was taken to the procedure room and noninvasive monitors placed, including noninvasive blood pressure cuff and pulse oximeter. The back was viewed using C-arm Fluoroscopy and prepped using Chloraprep as a cleansing solution and the L4-L5 interspace was palpated. Skin and subcutaneous tissues were anesthetized using lidocaine 1.5% and a 25-gauge needle. After this, an 18-gauge Touhy epidural needle was placed into the L4-L5 interspace and advanced using fluoroscopic guidance and loss of resistance to air until the epidural space was encountered. After confirmation of needle placement in the epidural space, with dye, a solution containing normal saline, 3 mL and Depo-Medrol 80 mg were incrementally injected into the lumbar epidural space. The patient tolerated the procedure well with no complications. The patient was observed in the Pain Clinic and then discharged home neurologically intact. Plan and Disposition:: Patient was discharged without incident.
== END 2023-09-30 08:36 | disposition home or self-care (01) ==
LOC: SC.PAINP 07:51
PROVIDERS: PCP Nurse Practitioner Family; Visit Provider Nurse Anesthetist, Certified Registered
DX: M51.16 Intervertebral disc disorders with radiculopathy, lumbar region (principal)
CPT/HCPCS: 62323; J1040

== ENCOUNTER → 2023-10-15 07:57 | Outpatient (POV) | payer MEDICARE, OTHER, SELFPAY ==
[2023-10-15 08:42] VITALS: BP 150/58; PULSE 61; RESP 18; O2SAT 97; BMI 41.7
--- NOTE | 2023-10-15 09:04 | A.OFFVIS_ITS ---
[facility] Pain Management SOAP Note Subjective:: Patient is a pleasant 73-year-old female who presents today for follow-up of lumbar epidural steroid injection L4-L5 on 09/30/2023. We are currently treating the patient for degenerative disc disease of lumbar spine with lumbar radiculopathy symptoms, low back pain, lumbar spinal stenosis, bilateral knee pain, bilateral hip pain. Today she rates her pain a 4 out of 10. Patient states that she really did not feel like she got significant relief as of right now from this injection. Patient states that she did feel the medication during the injection almost like it was moving down into her right leg. Patient does also state that she continues to have worsening pain in and around her bilateral knees. She does state that her left knee is worse. She states that she has recently been to Dr. Islas and had an injection in her left knee however she did not really feel like she has gotten much difference with it either. Patient is also presenting today with questions regarding past medications that she was prescribed including arthritis medicines from her primary care in and around [facility]. Patient states that these medications were stopped when she changed providers and she is just not sure whether or not if some of this medication would help being back on it. Patient denies any specific heart or kidney issues. Her Brent has been reviewed and is appropriate. Review of Systems: General: No recent weight changes, no fever, no sleep disturbances Respiratory: No cough, no shortness of air, no recurring pulmonary infections Cardiovascular/peripheral vascular: No chest pain, no palpitations, no edema, no shortness of breath Gastrointestinal: No new onset incontinence, normal bowel movements reported Genitourinary: No new onset incontinence Musculoskeletal: Low back pain, bilateral knee pain Psychiatric: [Normal mood/affect] Neurological: [Denies weakness in extremities], [denies balance issues] Objective:: Physical Exam: General: Alert and oriented x3, no acute distress, pleasant and cooperative Lungs: Respirations even and unlabored, symmetrical chest expansion Eyes: PERRL Musculoskeletal: Flexion and extension of lumbar [spine] somewhat guarded secondary to pain, [antalgic gait noted] Neurological: Speech clear, no gross sensory deficit FINDINGS: Sagittal images show normal vertebral height. Alignment is normal. A mass is noted of the left L1 vertebral body measuring 2.7 cm. This is likely hemangioma. There is also a mass of the L4 vertebral body measuring 2.0 cm also likely representing hemangioma. However both lesions to mild increased signal on STIR sequences which may features somewhat atypical. Otherwise marrow signal pattern is unremarkable. T12-L1: Minimal annular disc bulge L1-2: Mild annular disc bulge. Mild facet arthropathy. L2-3: Mild annular disc bulge without canal stenosis. Mild bilateral neural foraminal narrowing. L3-4: Moderate annular disc bulge and facet arthropathy. Borderline central canal stenosis. Mild bilateral neural foraminal narrowing. L4-5: Moderate annular disc bulge and facet arthropathy. Mild central canal stenosis. Moderate bilateral neural foraminal narrowing. L5-S1: Mild annular disc bulge and facet arthropathy. Mild central canal stenosis. Moderate bilateral neural foraminal narrowing. IMPRESSION: 1. No fracture 2. Moderate diffuse degenerative changes with canal stenosis and neural foraminal narrowing as above most pronounced lower lumbar spine 3. Bone lesions of L1 and L4. Favor hemangiomas although somewhat atypical in appearance. Consider MR follow-up in 6 months to confirm stability. Authenticated and ERN Assessment:: Degenerative disc disease of lumbar spine with lumbar radiculopathy symptoms, low back pain, lumbar spinal stenosis, bilateral knee pain, bilateral hip pain Plan:: Patient continues to have significant pain in her low back as well as her bilateral knees. I did discuss over again the MRI findings with the patient and followed up regarding her prior injections. Patient had previously gotten a lumbar epidural that did provide 50% relief however even that injection was delayed when she really felt like it started to work. I have discussed at length with the patient regarding her prior medications and to follow-up with her primary care provider regarding getting started back on some of these medications. I did review the patient's lab work and do not see any altered kidney function or cardiac related issues. I will send in a month supply of the diclofenac 75 mg twice daily. Patient was counseled to discontinue all other NSAIDs while taking this medication and to take it with food to minimize GI upset. Also reviewed with the patient that she will have to go to radiology for a copy of her imaging to be burned to a disc as well as recommended her to go to medical records if she wanted more detail pronounce of her patient history records. Patient will return to clinic in 1 month for reevaluation of symptoms and plan of care. Patient has been instructed to contact the clinic with any concerns before the next appointment. Dr. Salter has reviewed this note and agrees with this plan of care. This note was dictated using voice recognition software and make contain errors or omissions. [facility] Disclaimer: The information contained in this section may have been updated after the patient was seen, as this information can be updated by other users. Medical History Arthritis GERD (gastroesophageal reflux disease) HLD (hyperlipidemia) HTN (hypertension) Obesity Osteopenia TIA (transient ischemic attack) Surgical History H/O section H/O colonoscopy Family History Other Cancer Diabetes Heart disease Pulmonary emboli Social History Smoking Status: Never smoker alcohol intake: never substance use type: denies use current occupational status: retired Travel in the last 8 weeks: None caffeine: Yes
== END | disposition home or self-care (01) ==
PROVIDERS: PCP Nurse Practitioner Family; Visit Provider Nurse Practitioner Family
DX: M51.16 Intervertebral disc disorders with radiculopathy, lumbar region (principal); M48.061 Spinal stenosis, lumbar region without neurogenic claudication; M25.561 Pain in right knee; M25.562 Pain in left knee; M25.551 Pain in right hip; M25.552 Pain in left hip
CPT/HCPCS: 99212; G0463

== ENCOUNTER 2023-11-12 08:09 | Outpatient (POV) | payer MEDICARE, OTHER, SELFPAY ==
[2023-11-12 08:22] VITALS: BP 140/52; PULSE 62; RESP 18; O2SAT 98; BMI 41.9
--- NOTE | 2023-11-12 10:09 | A.OFFVIS_ITS ---
[facility] Pain Management SOAP Note Subjective:: Patient is a pleasant 73-year-old female who presents today for follow-up. Today she rates her pain a 3 out of 10. Patient denies any new trauma or injury. She does state that she is experiencing continued issues with her knees that she sees Dr. Islas for. She states that when she gets up and walking that she feels like her knees will be unsteady and remove and can come out from under her. Patient states that she does typically still try to move around and increase activity but frequently that she will do 1 day and kind of rest the next day in between eating. Patient does state that she feels like she has more weakness overall in her legs. She states previously that Dr. Islas was not recommending physical therapy at that time due to worrying that it may worsen her pain. Patient does have additional questions regarding if we would recommend a motorized wheelchair for her as well as once her recommendation would be for interventions to improve her overall symptoms. Patient was prescribed diclofenac 75 mg twice a day at our last visit and states that she has noticed improvement with this. She states right now her back is doing overall pretty well. Her Brent has been reviewed and is appropriate. Review of Systems: General: No recent weight changes, no fever, no sleep disturbances Respiratory: No cough, no shortness of air, no recurring pulmonary infections Cardiovascular/peripheral vascular: No chest pain, no palpitations, no edema, no shortness of breath Gastrointestinal: No new onset incontinence, normal bowel movements reported Genitourinary: No new onset incontinence Musculoskeletal: Bilateral knee pain/weakness Psychiatric: [Normal mood/affect] Neurological: [Denies weakness in extremities], [denies balance issues] Objective:: Physical Exam: General: Alert and oriented x3, no acute distress, pleasant and cooperative Lungs: Respirations even and unlabored, symmetrical chest expansion Eyes: PERRL Musculoskeletal: Flexion and extension of bilateral knees somewhat guarded secondary to pain, [antalgic gait noted] Neurological: Speech clear, no gross sensory deficit Assessment:: Degenerative disc disease of lumbar spine with lumbar radiculopathy symptoms, low back pain, lumbar spinal stenosis, bilateral knee pain, bilateral hip pain Plan:: I have discussed with the patient due to her continued pain in her knees with weakness that I do think it would be beneficial for home health evaluation and treatment. Risk and benefits were discussed with the patient and she would like to proceed forward with this plan of care. I have counseled the patient if she would like to contact Dr. Islas for confirmation that he would recommend this that she could call his office. I have also discussed with the patient that I do believe that she would benefit from possible knee braces to help offer stabilization when she is up ambulatory. I do believe it would be very beneficial for the patient to have a motorized wheelchair in order to not rely on her who is also of increased states that he may not be able to maneuver a standard wheelchair. Patient does rely heavily on him to help get her around from location to location. I have counseled the patient that if she needs us to fill out additional paperwork regarding a motorized wheelchair that we can do that. I will refill the patient's diclofenac and provide a 1 month supply of this medication. Patient will return to clinic in 1 month for reevaluation of symptoms and plan of care. Patient has been instructed to contact the clinic with any concerns before the next appointment. Dr. Salter has reviewed this note and agrees with this plan of care. This note was dictated using voice recognition software and make contain errors or omissions. [facility] Disclaimer: The information contained in this section may have been updated after the patient was seen, as this information can be updated by other users. Medical History Arthritis GERD (gastroesophageal reflux disease) HLD (hyperlipidemia) HTN (hypertension) Obesity Osteopenia TIA (transient ischemic attack) Surgical History H/O section H/O colonoscopy Family History Other Cancer Diabetes Heart disease Pulmonary emboli Social History Smoking Status: Never smoker alcohol intake: never substance use type: denies use current occupational status: retired Travel in the last 8 weeks: None caffeine: Yes
== END 2023-11-12 23:59 | disposition home or self-care (01) ==
PROVIDERS: PCP Nurse Practitioner Family; Visit Provider Nurse Practitioner Family
DX: M51.16 Intervertebral disc disorders with radiculopathy, lumbar region (principal); M54.50 Low back pain, unspecified; M48.061 Spinal stenosis, lumbar region without neurogenic claudication; M25.561 Pain in right knee; M25.562 Pain in left knee; M25.551 Pain in right hip; M25.552 Pain in left hip
CPT/HCPCS: 99212; G0463

== ENCOUNTER 2023-12-04 08:41 | Outpatient (CLI) | payer MEDICARE, OTHER, SELFPAY ==
[2023-12-04 10:34] LABS: Alanine Aminotransferase 22 U/L (12-78); Albumin Level 4.1 g/dl (3.5-5.0); Albumin/Globulin Ratio 1.5 (1.1-1.8); Alkaline Phosphatase 70 U/L (38-126); Anion Gap 7.4 mEq/L (5-15); Aspartate Amino Transferase 24 U/L (14-36); Bilirubin,Total 0.5 mg/dl (0.2-1.3); Blood Urea Nitrogen 18 mg/dl (7-17); Calcium 10.1 mg/dl (8.4-10.2); Carbon Dioxide 32 mmol/L (22.0-30.0); Chloride 103 mmol/L (98-107); Chol/HDL Ratio 7.9 (1-3.5); Cholesterol 292 mg/dl (140-200); Estimated Glomerular Filt Rate 71 ml/min (>60); GFR (African American) 86 ML/MIN (>60); Globulin 2.7 g/dL (1.3-3.2); Glucose 92 mg/dl (74-100); HDL Cholesterol 37 mg/dl (40-60); Potassium 4.4 mmoL/L (3.5-5.1); Sodium 138 mmol/L (136-145); Total Protein,Serum 6.8 g/dl (6.3-8.2); Triglycerides 193 mg/dl (30-150); VLDL Cholesterol 39 mg/dL (0-40)
[2023-12-04 10:47] LABS: Direct LDL Cholesterol 171.16 mg/dL (100-129)
== END 2023-12-04 23:59 | disposition home or self-care (01) ==
LOC: LAB 08:42
PROVIDERS: PCP Nurse Practitioner Family; Visit Provider Nurse Practitioner Family
DX: E78.5 Hyperlipidemia, unspecified (principal); I10 Essential (primary) hypertension
CPT/HCPCS: 36415; 80053; 80061

== ENCOUNTER 2023-12-10 08:13 | Outpatient (POV) | payer MEDICARE, OTHER, SELFPAY ==
[2023-12-10 08:27] VITALS: BP 164/60; PULSE 60; RESP 18; O2SAT 97; BMI 42.1
--- NOTE | 2023-12-10 09:09 | A.OFFVIS_ITS ---
[facility] Pain Management SOAP Note Subjective:: Patient is a pleasant 73-year-old female who presents today for follow-up. Today she rates her pain at 8 out of 10 however she states that she has not been up and moving much. She does state that the pain will go up to an 8 out of 10 with increased activity. Patient denies any new trauma or injury. She does state that her pain is still all in her low back with radiating symptoms into her lower extremities. She does describe this as an aching, throbbing sensation with numbness and tingling. Patient does state the pain interferes with her ability perform activities of daily living such as cooking and cleaning. In the past she has gotten a lumbar epidural that did provide more than 50% relief lasting several months. Patient is interested in repeating this injection. Patient does also state that she did just finish up her home health visits and that she is doing much better with more movement in her joints and legs. Patient does states she feels a little bit more stable on her feet. Patient is prescribed diclofenac 75 mg twice a day and states this is helping. Her Brent has been reviewed and is appropriate. Review of Systems: General: No recent weight changes, no fever, no sleep disturbances Respiratory: No cough, no shortness of air, no recurring pulmonary infections Cardiovascular/peripheral vascular: No chest pain, no palpitations, no edema, no shortness of breath Gastrointestinal: No new onset incontinence, normal bowel movements reported Genitourinary: No new onset incontinence Musculoskeletal: Low back pain bilateral leg pain Psychiatric: [Normal mood/affect] Neurological: [Denies weakness in extremities], [denies balance issues] Objective:: Physical Exam: General: Alert and oriented x3, no acute distress, pleasant and cooperative Lungs: Respirations even and unlabored, symmetrical chest expansion Eyes: PERRL Musculoskeletal: Flexion and extension of lumbar [spine] somewhat guarded secondary to pain, [antalgic gait noted] Neurological: Speech clear, no gross sensory deficit Assessment:: Degenerative disc disease of lumbar spine with lumbar radiculopathy symptoms, low back pain, lumbar spinal stenosis, bilateral knee pain, bilateral hip pain Plan:: Patient is experiencing worsening pain in her low back and legs with limited range of motion of her lumbar spine. Patient did previously have a lumbar epidural and June last year that did provide 50% relief lasting several months. I have discussed with patient that she may benefit from repeat lumbar epidural. Risk and benefits were discussed with patient and she would like to proceed forward with this plan of care. Patient is not on any blood thinners. Patient has tried and failed conservative therapies including recent physical therapy and home health therapy. We will schedule the patient for an LESI L4-L5 under fluoroscopy. I will also refill the patient's diclofenac and provide a 1 month supply of this medication. Patient has been instructed to contact the clinic with any concerns before the next appointment. Dr. Salter has reviewed this note and agrees with this plan of care. This note was dictated using voice recognition software and make contain errors or omissions. [facility] Disclaimer: The information contained in this section may have been updated after the patient was seen, as this information can be updated by other users. Medical History Arthritis GERD (gastroesophageal reflux disease) HLD (hyperlipidemia) HTN (hypertension) Obesity Osteopenia TIA (transient ischemic attack) Surgical History H/O section H/O colonoscopy Family History Other Cancer Diabetes Heart disease Pulmonary emboli Social History Smoking Status: Never smoker alcohol intake: never substance use type: denies use current occupational status: other Travel in the last 8 weeks: None caffeine: Yes
== END 2023-12-10 23:59 ==
LOC: SC.PAIN 08:14
PROVIDERS: Visit Provider Nurse Practitioner Family
DX: M51.16 Intervertebral disc disorders with radiculopathy, lumbar region (principal); M54.50 Low back pain, unspecified; M48.061 Spinal stenosis, lumbar region without neurogenic claudication; M25.561 Pain in right knee; M25.562 Pain in left knee; M25.551 Pain in right hip; M25.552 Pain in left hip
CPT/HCPCS: 99212; G0463

== ENCOUNTER 2024-04-09 08:00 | Outpatient (RCR) | payer MEDICARE, OTHER, SELFPAY | END 2024-04-09 08:05 | disposition home or self-care (01) | LOC: OT 08:00 | PROVIDERS: Visit Provider Nurse Practitioner Family | DX: M75.51 Bursitis of right shoulder (principal) | CPT/HCPCS: 97010; 97014; 97035; 97110; 97140; 97165; 97530; G0283 ==